=== PATIENT | female | born 2005 | race African-American/Black ===

== ENCOUNTER 2024-11-11 11:40 | Inpatient (IN) | payer OTHER ==
[~2024-11-11] VITALS: Ht 167.6 cm; Wt 55.3 kg
[2024-11-11] VITALS (9 sets, daily range): BP systolic 114–125; BP diastolic 70–77; PULSE 69–89; RESP 16–18; TEMP 98–99.1; O2SAT 96–100
[2024-11-11 12:39] LABS: BASOPHILS % 1.6 % (0.0-1.0); EOSINOPHILS % 3.6 % (0.0-6.0); LYMPHOCYTES % 39.6 % (18.0-39.1); MONOCYTES % 8.4 % (4.4-11.3); NEUTROPHILS % 46.6 % (38.7-80.0); RED CELL DISTRIBUTION WIDTH 21.4 % (11.7-14.4)
[2024-11-11 13:02] LABS: EST GLOMERULAR FILTRATION RATE 130.0 ML/MIN (>=60)
[2024-11-11] MEDS ORDERED: ONDANSETRON HCL INJ 2MG/ML 2ML 2 MG/ML VIAL IV PRN (13:45)
[2024-11-11] MEDS ORDERED: SODIUM CHLORIDE FLUSH 10 ML SYR INJ PRN (13:45)
[2024-11-11] MEDS ORDERED: BENZONATATE 100 MG CAP PO PRN (15:30)
[2024-11-11] MEDS ORDERED: HYDRALAZINE HCL 20 MG/ML VIAL IV PRN (15:30)
[2024-11-11] MEDS ORDERED: POTASSIUM CHLORIDE 20 MEQ TAB CR PO PRN (15:30)
[2024-11-11] MEDS ORDERED: LIDOCAINE 4% PATCH TP PRN (15:30)
[2024-11-11] MEDS ORDERED: SIMETHICONE 80 MG CHEW PO PRN (15:30)
[2024-11-11] MEDS ORDERED: DEXTROSE 50% SYRINGE 50 ML IV PRN (15:30)
[2024-11-11] MEDS ORDERED: ALBUTEROL/IPRATROPIUM 3 ML NEB NEB PRN (15:30)
[2024-11-11] MEDS ORDERED: ACETAMINOPHEN 325 MG TAB PO PRN (15:30)
[2024-11-11] MEDS ORDERED: MELATONIN 5 MG TABLET PO PRN (21:00)
[2024-11-12] VITALS (7 sets, daily range): BP systolic 119–127; BP diastolic 72–78; PULSE 69–87; RESP 16–20; TEMP 97.9–98.9; O2SAT 96–100
[2024-11-12 05:54] LABS: BASOPHILS % 1.3 % (0.0-1.0); EOSINOPHILS % 3.9 % (0.0-6.0); LYMPHOCYTES % 43.1 % (18.0-39.1); MONOCYTES % 9.1 % (4.4-11.3); NEUTROPHILS % 42.6 % (38.7-80.0); RED CELL DISTRIBUTION WIDTH 25.9 % (11.7-14.4)
[2024-11-12 06:25] LABS: EST GLOMERULAR FILTRATION RATE 129.0 ML/MIN (>=60)
[2024-11-12 06:30] LABS: % IRON SATURATION 5.0 % (15-50)
[2024-11-12] MEDS: SODIUM CHLORIDE 0.9% 500ML 500 ML ONE (09:56)
[2024-11-12] MEDS: SODIUM CHLORIDE 0.9% 250ML 250 ML IV ONE (09:56)
[2024-11-12] MEDS: PANTOPRAZOLE SOD 40 MG TABEC PO SCH (09:57)
[2024-11-12 10:19] LABS: EOSINOPHILS % (MANUAL) 3 % (0-7); LYMPHOCYTES % (MANUAL) 37 % (19-48); MONOCYTES % (MANUAL) 4 % (3.4-9.0); NEUTROPHILS % (MANUAL) 53 % (40-74); PLATELET ESTIMATE ADEQUATE; PLATELET MORPHOLOGY COMMENT NORMAL; REACTIVE LYMPHOCYTES 3
[2024-11-12 10:20] LABS: RBC MORPHOLOGY COMMENT ABNORMAL
[2024-11-12 10:21] LABS: ELLIPTOCYTE, RBC SLIGHT
[2024-11-12] MEDS: SODIUM CHLORIDE 0.9% 250ML 250 ML ONE (12:49)
[2024-11-12] MEDS: SODIUM FERRIC GLUCONATE COMPLX 250 MG in SODIUM CHLORIDE 0.9% 100 ML IV SCH (12:59)
[2024-11-13] VITALS (7 sets, daily range): BP systolic 112–128; BP diastolic 61–68; PULSE 68–84; RESP 16–20; TEMP 97.7–98.6; O2SAT 97–100
[2024-11-13 05:29] LABS: BASOPHILS % 1.3 % (0.0-1.0); EOSINOPHILS % 3.7 % (0.0-6.0); LYMPHOCYTES % 35.4 % (18.0-39.1); MONOCYTES % 10.7 % (4.4-11.3); NEUTROPHILS % 48.6 % (38.7-80.0); RED CELL DISTRIBUTION WIDTH 25.9 % (11.7-14.4)
[2024-11-13 05:59] LABS: EST GLOMERULAR FILTRATION RATE 129.0 ML/MIN (>=60)
[2024-11-13 09:11] LABS: EOSINOPHILS % (MANUAL) 3 % (0-7); LYMPHOCYTES % (MANUAL) 35 % (19-48); MONOCYTES % (MANUAL) 6 % (3.4-9.0); NEUTROPHILS % (MANUAL) 55 % (40-74); PLATELET ESTIMATE ADEQUATE; PLATELET MORPHOLOGY COMMENT NORMAL; REACTIVE LYMPHOCYTES 1
[2024-11-13 09:12] LABS: ELLIPTOCYTE, RBC SLIGHT; RBC MORPHOLOGY COMMENT ABNORMAL
[2024-11-13] MEDS: DOCUSATE SODIUM 100 MG CAP PO PRN (09:39)
[2024-11-13] MEDS: DIPHENHYDRAMINE HCL 25 MG CAP PO PRN (12:40)
[2024-11-19 17:11] LABS: ENDOMYSIAL ANTIBODIES, IGA Negative (Negative)
[2024-11-19 20:23] LABS: TISSUE TRANSGLUTAMINASE IGA AB 6 U/mL (0-3)
== END 2024-11-13 17:24 | disposition home or self-care (01) | DRG 812 ==
LOC: ER 12:16 → ERHOLD 13:34 → MED/SURG 17:00 → OBSVTOIN 11-13 13:14
PROVIDERS: ADMIT Internal Medicine; ATTEND Internal Medicine
PROC: 30233N1 Transfusion of Nonautologous Red Blood Cells into Peripheral Vein, Percutaneous Approach (ICD-10-PCS; principal; 2024-11-11)
DX: D50.9 Iron deficiency anemia, unspecified (principal); D72.819 Decreased white blood cell count, unspecified; J45.909 Unspecified asthma, uncomplicated; Z88.1 Allergy status to other antibiotic agents
CPT/HCPCS: 36415; 80048; 80053; 82607; 82728; 82784; 83516; 83540; 84466; 84484; 84702; 85014; 85018; 85025; 85045; 86256; 86850; 86900; 86920; 93005; 94799; 99284; G0378; J2470; J2916; J7040; J7050; P9016